=== PATIENT | female | born 1975 | race Caucasian/White ===

== ENCOUNTER 2023-10-10 13:00 | Outpatient (CLI) | payer MEDICAID ==
[~2023-10-10 13:00] MED LIST: ACET-812 PO; ARIP5TAB12 PO; ATEN25TA PO; CITA40TA22 PO; CLON2TAB45 PO; CYCL-1 PO; FERR325T39 PO; LISI40TA13 PO; NOR5T PO; OMEP20TA43 PO; OXYC5CAP22 PO; ZOLP5TAB2 PO; [UNRECOGNIZED DRUG - OTHER] PO
[2023-10-10 14:23] LABS: ABG BASE EXCESS 2.6 mmol/L (-2.0-2.0); ABG HCO3 26.9 mmol/L (22.0-26.0); ABG OXYGEN SATURATION 92.9 % (94-97); ABG PCO2 (T) 40.1 mmHg (32.0-45.0); ABG PH (T) 7.444 (7.350-7.450); ABG PO2 (T) 63.7 mmHg (75.0-100.0); ALLEN'S TEST Yes; FCOHb 0.3 % (0.0-3.9); FHHb 7.1 % (0.0-5.0); FMetHb 0.3 % (0.0-1.5); FO2Hb 92.3 % (94-97); TOTAL HEMOGLOBIN 11.9 G/dl (12.0-16.0)
== END 2023-10-10 23:59 | disposition home or self-care (01) ==
LOC: RT 13:00
PROVIDERS: ATTEND Family Medicine
DX: Z01.812 Encounter for preprocedural laboratory examination (principal); G47.33 Obstructive sleep apnea (adult) (pediatric)
CPT/HCPCS: 36600; 82803; 85018